=== PATIENT | female | born 1995 | race Caucasian/White ===

== ENCOUNTER 2023-10-22 19:02 | Emergency (ER) | payer OTHER, SELFPAY ==
[2023-10-22 19:03] VITALS: BP 148/98
--- NOTE | 2023-10-22 19:44 | ED.GENMED ---
History of Present Illness
General
Chief Complaint: Skin Problem
Time Seen by Provider: 10/22/23 19:34
Travel History
Have you had any contact with someone who has COVID-19?: No
Do you have any symptoms of coronavirus? Fever > 100 degrees, chills, cough, shortness of breath, sore throat, loss of taste or smell, muscle aches, or headache?: No
History of Present Illness
History of Present Illness:
28-year-old female with history of anxiety and depression presents to the emergency department for evaluation of fatigue, hot flashes, 'feeling crazy', and insomnia. Symptoms of started over the past 3 to 4 days. Notes that she completed a course
of methylprednisolone taper yesterday due to acute otitis media. She states she took a lorazepam this morning with mild improvement in symptoms. Has never taken steroids in the past. Denies any SI or HI.
Review of Systems
Review of Systems
Allergies reviewed?: Yes
All Other Systems: ROS reviewed and negative except as documented in HPI and ROS
Phy Exam
Physical Exam
Physical Exam:
GEN: Well appearing, NAD, WDWN
HEENT: Oral mucosa moist, no scleral icterus, pupils PERRLA
Cardiac: Mildly tachycardic, regular
Lung: No respiratory distress, no tachypnea, lungs clear to auscultation bilaterally
MSK: No gross deformity or injuries
Skin: Good color, no pallor or jaundice, no rashes
Neuro: AO x3, moves all extremities freely
Psych: Calm, cooperative
Course
Orders/Labs/Results
Orders:
Orders
10/22/23 20:00
Basic Metabolic Panel Urgent
Complete Blood Count/No Diff Urgent
TSH Reflex To Free T4 Urgent
10/22/23 21:02
Urinalysis Reflex To Culture Urgent
Date Specimen was Collected: 10/22/23
Time Specimen was Collected: 21:00
Urine Microscopic Reflex Cult Urgent
Urine Culture Urgent
DA Source: U
Specimen Description:
Date Specimen was Collected: 10/22/23
Time Specimen was Collected: 21:00
Abnormal Lab Results
10/22/23 10/22/23
20:00 21:02
WBC 15.5 H 10^3/uL
(4.8-10.8)
Creatinine 0.5 L mg/dL
(0.6-1.0)
Glucose 116 H mg/dl
(70-99)
Urine Bilirubin 1+ A
(Negative)
Leukocyte Esterase Rfl Trace A
(Negative)
Urine Bacteria (Reflex) Many A
(Negative)
10/22/23 20:00
10/22/23 20:00
Vital Signs
Initial and Last Documented VS:
Initial Vital Signs
Temp Pulse Resp BP Pulse Ox
98.7 F 118 20 148/98 99
10/22/23 19:03 10/22/23 19:03 10/22/23 19:03 10/22/23 19:03 10/22/23 19:03
Last Documented Vital Signs
Temp Pulse Resp BP Pulse Ox
98.7 F 118 20 148/98 99
10/22/23 19:03 10/22/23 19:03 10/22/23 19:03 10/22/23 19:03 10/22/23 19:03
MDM/Problems Addressed
MDM/Problems Addressed:
Symptoms are likely on the basis of steroid adverse reactions. Her labs are unremarkable, leukocytosis likely on the basis of leukemoid reaction from steroids, no clinical signs or symptoms of infectious etiology. Recommend continued use of at
home benzodiazepines on an as-needed basis, would anticipate that symptoms will improve within the next 48 hours
*Critical Care Note
Total Time (30-74mins, 75-104mins- exclusive of procedures): Not Applicable
ED Attending Note
-
Portions of this chart may have been created with voice recognition software.� Occasional wrong word or��sound alike� substitutions may have occurred due to the inherent limitations of voice recognition software.
Discharge Plan
Departure
Patient Disposition: Home (Routine Discharge)
Date of Disposition: 10/22/23
Time of Disposition: 20:43
Patient with high blood pressure during this ER visit?: No
Discharge Problem:
Adverse effect of corticosteroids
Activity Restrictions/Additional Instructions:
Take your lorazepam as needed to alleviate symptoms
Your symptoms should improve in the next 48 hours
Interventions
Interventions:
*Risk Screen - Suicide Last Done: 10/22/23 19:43
*General Assessment Last Done: 10/22/23 19:03
*Neglect/Abuse Screening Last Done: 10/22/23 19:43
ED- Fall Risk Assessment Last Done: 10/22/23 19:43
*ED COVID-19 Vaccine History Last Done: 10/22/23 19:43
*Nursing Disposition Last Done: 10/22/23 21:07
ED-Skin Assessment Last Done: 10/22/23 19:43
Discharge Date and Time
Discharge Date/Time: 10/22/23 21:07
Print Language: ZAMBIAN
[2023-10-22 20:08] LABS: Hematocrit 41.3 % (37.0-47.0); Hemoglobin 14.4 g/dL (12.0-16.0); Mean Corp Hgb Conc. 34.9 g/dL (33.0-37.0); Mean Corpuscular Hgb 29.8 pg (27.0-31.0); Mean Corpuscular Volume 85.3 fL (81.0-99.0); Mean Platelet Volume 9.7 fL (7.4-10.4); Platelet Count 384 10^3/uL (130-400); Red Blood Cell Count 4.84 10^6/uL (4.20-5.40); Red Cell Dist. Width 12.2 % (11.5-14.5); White Blood Cell Count 15.5 10^3/uL (4.8-10.8)
[2023-10-22 20:22] LABS: Blood Urea Nitrogen 16 mg/dl (7-17); Calcium 9.4 mg/dl (8.4-10.2); Carbon Dioxide 27 mmol/L (22-30); Chloride 104 mmol/L (98-107); Glucose 116 mg/dl (70-99); Potassium 4.3 mmol/L (3.5-5.1); Sodium 136 mmol/L (135-145); eGFR > 60.00
[2023-10-22 20:53] LABS: TSH Reflex To Free T4 2.93 uIU/ml (0.47-4.68)
[2023-10-22 21:10] LABS: Urine Albumin Negative (Neg - Trace); Urine Bilirubin 1+ (Negative); Urine Character Slightly Cloudy (Clear); Urine Color Yellow; Urine Glucose Negative (Negative); Urine Ketone Negative (Negative); Urine Leukocyte Trace (Negative); Urine Nitrite Negative (Negative); Urine Occult Blood Negative (Negative); Urine Urobilinogen Negative (Neg - 1+)
[2023-10-22 21:16] LABS: Urine Red Blood Cell 0-2 /HPF (0-2); Urine Squamous Cell 16-20 /LPF (Few); Urine White Cell 0-2 /HPF (0-5)
[2023-10-22 21:17] LABS: Urine Bacteria Many (Negative)
== END 2023-10-22 21:07 | disposition home or self-care (01) ==
LOC: EMR 19:02
PROVIDERS: Physician Assistant; EMERGENCY PHYSICIAN Emergency Medicine; FAMILY PHYSICIAN Internal Medicine
DX: R53.83 Other fatigue (principal); R23.2 Flushing; T38.0X5A Adverse effect of glucocorticoids and synthetic analogues, initial encounter
CPT/HCPCS: 99283; 80048; 81003; 81015; 84443; 85027; 87086